=== PATIENT | male | born 1980 | race African-American/Black ===

== ENCOUNTER 2020-11-09 14:04 | Outpatient (REF) | payer OTHER, SELFPAY | END 2020-11-09 14:05 | disposition home or self-care (01) | LOC: HO.LAB 14:04 | PROVIDERS: PCP Internal Medicine; Visit Provider Internal Medicine | DX: Z20.822 Contact with and (suspected) exposure to COVID-19 (principal) | CPT/HCPCS: 36415; C9803; U0003 ==

== ENCOUNTER 2021-06-29 07:55 | Outpatient (REF) | payer OTHER, SELFPAY | END 2021-06-29 07:56 | disposition home or self-care (01) | LOC: HO.LAB 07:55 | PROVIDERS: PCP Internal Medicine; Visit Provider Internal Medicine | DX: Z20.822 Contact with and (suspected) exposure to COVID-19 (principal) | CPT/HCPCS: C9803; U0003; U0005 ==